=== PATIENT | male | born 1955 | race Caucasian/White ===

== ENCOUNTER → 2020-10-30 12:09 | Outpatient (BNVA) | payer MEDICARE, SELFPAY | PROVIDERS: Family Provider Family Medicine; PCP Family Medicine; Visit Provider Family Medicine | DX: N40.0 Benign prostatic hyperplasia without lower urinary tract symptoms (principal); R03.0 Elevated blood-pressure reading, without diagnosis of hypertension; Z12.5 Encounter for screening for malignant neoplasm of prostate | CPT/HCPCS: 80053; 85025; G0103 ==

== ENCOUNTER → 2020-12-11 09:50 | Outpatient (BNVA) | payer MEDICARE, SELFPAY | PROVIDERS: Family Provider Family Medicine; PCP Family Medicine; Visit Provider Family Medicine | DX: M17.11 Unilateral primary osteoarthritis, right knee (principal) | CPT/HCPCS: 73562 ==

== ENCOUNTER → 2020-12-26 10:54 | Outpatient (BNVA) | payer MEDICARE, SELFPAY | PROVIDERS: Family Provider Family Medicine; PCP Family Medicine; Referring Provider Family Medicine; Visit Provider Specialist | DX: M17.11 Unilateral primary osteoarthritis, right knee (principal); Z96.643 Presence of artificial hip joint, bilateral; Z96.652 Presence of left artificial knee joint | CPT/HCPCS: 73560; 73565 ==

== ENCOUNTER 2021-01-01 10:20 | Outpatient (RCR) | payer MEDICARE, SELFPAY | END 2021-01-26 23:59 | disposition home or self-care (01) | LOC: SPT 10:20 | PROVIDERS: Family Provider Family Medicine; PCP Family Medicine; Referring Provider Specialist; Visit Provider Specialist | DX: M17.11 Unilateral primary osteoarthritis, right knee (principal) | CPT/HCPCS: 97110; 97161 ==

== ENCOUNTER 2021-01-27 06:00 | Outpatient (RCR) | payer MEDICARE, SELFPAY | END 2021-02-26 23:59 | disposition home or self-care (01) | LOC: SPT 06:00 | PROVIDERS: Family Provider Family Medicine; PCP Family Medicine; Referring Provider Specialist; Visit Provider Specialist | DX: M17.11 Unilateral primary osteoarthritis, right knee (principal) | CPT/HCPCS: 97110 ==

== ENCOUNTER → 2021-10-08 15:18 | Outpatient (BNVA) | payer MEDICARE, SELFPAY | PROVIDERS: Family Provider Family Medicine; PCP Family Medicine; Visit Provider Specialist | DX: M17.11 Unilateral primary osteoarthritis, right knee (principal) | CPT/HCPCS: 73560; 73565 ==

== ENCOUNTER → 2021-10-30 11:00 | Outpatient (BNVA) | payer MEDICARE, SELFPAY | PROVIDERS: Family Provider Family Medicine; PCP Family Medicine; Visit Provider Specialist | DX: Z20.822 Contact with and (suspected) exposure to COVID-19 (principal); M17.11 Unilateral primary osteoarthritis, right knee | CPT/HCPCS: 87635 ==

== ENCOUNTER 2021-11-04 17:16 | Observation (INO) | payer MEDICARE, SELFPAY ==
[2021-10-30 09:13] VITALS: BMI 34.3
--- NOTE | 2021-10-30 09:18 | ECG_ITS ---
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 Measurements Intervals [place] Rate: 77 P: 39 WA: 125 QRS: 19 QRSD: 105 T: 28 QT: 384 QTc: 435 Interpretive Statements SINUS RHYTHM No previous ECG available for comparison Electronically Signed On 10-30-2021 16:07:45 DOUGHNUT BATTER MIXER by Miya Gomez M.D. [id number]
[2021-10-30 09:49] LABS: Basophils # 0.1 10^3/uL (0.0-0.1); Eosinophils # 0.2 10^3/uL (0.0-0.8); Eosinophils % 2.7 %; Hematocrit 44.9 % (42.0-52.0); Lymphocytes # 1.6 10^3/uL (0.8-4.8); Lymphocytes % 27.7 %; Mean Corpuscular HGB Conc 33.4 g/dL (30.0-36.0); Mean Corpuscular Hemoglobin 29.7 pg (28.0-34.0); Mean Corpuscular Volume 88.9 fl (80-94); Mean Platelet Volume 9.3 fL (7.4-10.4); Monocytes # 0.6 10^3/uL (0.2-0.9); Monocytes % 10.4 %; Neutrophils # 3.38 10^3/uL (1.8-7.7); Neutrophils % 57.9 %; Nucleated Red Blood Cells % 0 %; Platelet Count 232 10^3/cmm (130-400); Red Blood Count 5.05 10^6/uL (4.1-5.3); Red Cell Distribution Width 13.2 % (12.1-15.1); White Blood Count 5.9 10^3/uL (4.0-10.0)
[2021-10-30 10:07] LABS: Add Urine Microscopic? NO; Charge for UA Resulting for Rev
--- NOTE | 2021-10-30 10:11 | ANES.PREANE2 ---
Pre-Anesthetic Assessment Pre-Anesthetic Assessment: Height/Weight: Height 1.63 m Weight 90.718 kg Preop Diagnosis: Primary osteoarthritis right knee Proposed Procedure: Operation Date: 11/04/21 14:10 Proposed Procedures p Total Knee Arthroplasty 62100 M17.10(Right) - Vidya Street MD Was Beta Irene taken within 24 hours: N/A Was Clonidine taken within 24 hours: N/A Social: Social History: No alcohol and No tobacco Exam: Pre-Anes Outpt Exam: alert, oriented x 3, clear to auscultation bilaterally and regular rate & rhythm Airway: Submandibular: WNL Cervical ROM: WNL MP: 1 Dentition: Full History/ROS: No significant history except as noted Pulmonary: Pulmonary: ADHIKARI CV/HEM: CV/HEM: None reported : : None reported Hepatic: Hepatic: None reported GI: GI: GERD and Hiatus hernia Metabolic: Metabolic: None reported Musc/skel: Musc/skel: None reported Neuropsych: Neuropsych: None reported Anesthetic Plan: ASA status: 2 Anesthesia: Anesthesia Evaluation, General and Regional (specify below) Other: General anesthetic with regional adductor canal block for post op pain control. Patient prefers to be asleep. Risk of > 500 ml blood loss (7ml/kg in children): No PFSH Anesthesia PFSH: Medical History Osteoarthritis of right knee Surgical History History of hip replacement Bilateral History of knee replacement Left Social History Smoking and tobacco status: never smoked Alcohol intake: current Alcohol intake frequency: holidays/special occasions only Data Anesthesia CBC & Chem 7: 10/30/21 09:35 10/30/21 09:35 Other Labs: Laboratory Results - last 48 hr 10/30/21 09:35 WBC 5.9 RBC 5.05 Hgb 15.0 Hct 44.9 MCV 88.9 MCH 29.7 MCHC 33.4 RDW 13.2 Plt Count 232 MPV 9.3 Neut % (Auto) 57.9 Lymph % (Auto) 27.7 [place]lette % (Auto) 10.4 Eos % (Auto) 2.7 Baso % (Auto) 1.0 Neut # (Auto) 3.38 Lymph # (Auto) 1.6 [place] # (Auto) 0.6 Eos # (Auto) 0.2 Baso # (Auto) 0.1 Nucleated RBC % (auto) 0 Nucleated RBCs # 0.0 Cardiac Studies: No Data to Display
[2021-10-30 10:20] LABS: Alanine Aminotransferase 20 U/L (0-41); Albumin Level 4.1 g/dL (3.5-5.2); Alkaline Phosphatase 94 IU/L (40-130); Anion Gap 15.3 (5-19); Aspartate Amino Transferase 24 U/L (0-40); Blood Urea Nitrogen 18 mg/dL (8-23); Calcium 8.5 mg/dL (8.5-10.5); Carbon Dioxide 23 mmol/L (22-29); Chloride 105 mmol/L (98-107); Globulin 2.3 g/dL (1.3-4.6); Glomerular Filtration Rate 84.7 mL/min (90-130); Glucose 94 mg/dL (65-115); Osmolality Calculated 290 mOsm/kg (285-295); Potassium 4.3 mmol/L (3.5-5.1); Sodium 139 mmol/L (136-145); Total Bilirubin 0.3 mg/dL (0.15-1.2); Total Protein 6.4 g/dL (6.6-8.7)
[2021-10-30 10:27] LABS: Bilirubin Urine Neg (Negative); Blood Urine Neg (Negative); Glucose Urine UA Norm (Normal); Ketones Urine Negative (Negative); Leukocyte Esterase Urine Negative (Negative); Nitrate Urine Negative (Negative); Protein Urine Neg (Negative); Urine Appearance Clear (CLEAR); Urine Color Straw (Yellow); Urobilinogen Urine Norm (Negative); pH Urine 5 (5-7)
[2021-11-04] VITALS (11 sets, daily range): BP systolic 136–186; BP diastolic 76–109; PULSE 80–97; RESP 12–18; TEMP 36.4–36.9; O2SAT 91–94; BMI 34.3
[2021-11-04] MEDS: sodium chloride 0.9% 1,000 ML 30 ML IV (12:45)
--- NOTE | 2021-11-04 14:35 | W.PM.OPSUD ---
Surgery/Procedure H&P Update DATE OF PROCEDURE: November 04, 2021 DATE H&P PERFORMED: 10/08/21 H&P UPDATE INFORMATION: I have reviewed H&P completed within last 30 days, I have examined patient prior to procedure, No changes to prior documentation and H&P is in [facility] EMR on date indicated PREOP DIAGNOSIS: Primary osteoarthritis right knee PLANNED PROCEDURE: Operation Date: 11/04/21 14:10 Proposed Procedures p Total Knee Arthroplasty 16261 M17.10(Right) - Vidya Street MD Related Problem List Diagnoses (1) Osteoarthritis of right knee: Qualifiers: Osteoarthritis type: primary Qualified Code(s): M17.11 - Unilateral primary osteoarthritis, right knee
--- NOTE | 2021-11-04 14:41 | P.ANESUD_ITS ---
Pre-Anesthetic Update Pre-Anesthetic Assessment: Date of Surgery/Procedure: 11/04/21 Preop Brianda gnosis: Primary osteoarthritis right knee Proposed Procedure: Operation Date: 11/04/21 14:10 Proposed Procedures p Total Knee Arthroplasty 22055 M17.10(Right) - Vidya Street MD Any changes to Pre-Anesthetic Assessment?: No Last Intake: Intake Last Liquid Date 11/03/21 Last Liquid Time 18:00 Last Solid Date 11/03/21 Last Solid Time 18:00 Vitals: Temperature 98 F 11/04/21 12:29 Temperature Source Temporal Artery S can 11/04/21 12:29 Pulse Rate 95 11/04/21 12:29 Pulse Rhythm 11/04/21 12:29 Pulse Strength 3+ Normal 11/04/21 12:29 Respiratory Rate 18 11/04/21 12:29 Blood Pressure 169/108 11/04/21 12:29 Blood Pressure Christina n 128 11/04/21 12:29 Pulse Oximetry 94 11/04/21 12:29 Oxygen Delivery Me thod 11/04/21 12:29 Exam: Pre-Anes Outpt Exam: alert Cardiac Studies: No Data to Display
[2021-11-04] MEDS: vancomycin 1,000 MG in sodium chloride 0.9% 250 ML 250 MG IV (15:20)
--- NOTE | 2021-11-04 15:36 | ANES.PROC ---
Anesthesia Procedures Procedure/Date: 11/04/21 Nerve Block ^: Nerve Block 1: Main Anesthesia: general anesthesia Time Out Performed: Yes Consent: from patient Nerve block location: adductor canal Anesthesia monitors applied: pulse oximetry, EKG, BP cuff and oxygen Nerve block position: supine Anesthetic Used: ropivicaine 0.5% Amount of anesthesia used (mL): 20 Ultrasound used to: recognize landmarks and visualize and ID femerol nerve Nerve Stimulator Used?: No Interscalene/Femoral BLK: 4 stimuplex 21 g needle used for position and inplane approach and visualize local anesthetic spread Injection: neg aspiration of heme Patient Tolerated Procedure: well Complications: none Additional Comments: Full monitors, after time out patient prepped in usual fashion. Using US for real time visualization of structures, needle advanced under US toward target. After negative aspiration total 20 cc ropivacaine 0.5% injected incrementally with negative aspiration between injections with real time visualization of LA spread throughout. Good block, tolerated well.
[2021-11-04] MEDS: vancomycin 1,000 MG SDV 1000 MG XX (16:40)
[2021-11-04] MEDS: vancomycin 1,000 MG SDV 2000 MG IRRIGATION (16:40)
--- NOTE | 2021-11-04 18:18 | PM.OP ---
Operative Report Date of procedure: November 04, 2021 Pre-op Diagnosis: Primary osteoarthritis right knee Post-op diagnosis: same Post-op Findings: Severe degenerative osteoarthritis right knee with calcification in patellar tendon. Procedure Done: Right total knee arthroplasty Implants: The [place] total knee system with a size 5 triathlon beaded posterior stabilized femur right, a triathlon titanium tibial component size 6 beaded, a triathlon X3 posterior stabilized tibial bearing insert size 6 X 16 mm and a beaded triathlon titanium asymmetric patella size 35 x 10 mm Pathology: none sent Surgeon: Vidya Street Solar Energy Installation Manager: [facility] operating room technicians Anesthesia: General (Intubated with preoperative regional block, ASA 2) Estimated blood loss (mL): 25 Tourniquet time (min): 110 Tourniquet time: At 250 mmHg IV fluids (mL): 1,000 Urine output (mL): 200 Complications: None Findings: Severe degenerative osteoarthritic change primarily involving the medial compartment. Calcification was in the patellar tendon. Decreased range of motion. Condition: stable Disposition: PACU (Then discharged to floor for postoperative rehabilitation, pain management, and medical observation.) Brief History: This 65-year-old gentleman presented with complaints of severe right knee pain which caused him significant limitations in his activities of daily living. The patient wished to proceed with operative intervention after nonoperative measures were not successful in addressing his decreased functionality and level of pain. Discussion was undertaken, consents were signed, and questions were answered. Following his surgical procedure, the patient will be placed on the floor under observation status for postoperative rehabilitation. Procedure: The patient was brought to the operating theater, and after undergoing adequate general intubated anesthesia with regional block, ASA 2, the right lower extremity was prepped with Dura-Prep and draped in usual fashion following placement of a tourniquet high on the leg. The leg was then draped free. Following prepping and draping, the leg was exsanguinated, and the tourniquet was elevated to 250 mm Hg for a total tourniquet time of 110 minutes. Prior to elevation of the tourniquet, but following exposure of the site of surgery, a surgical pause was performed. At the time of the surgical pause, we confirmed the site and side of surgery. Additionally, we confirmed the appropriate and timely administration of preoperative antibiotics, vancomycin 1 g and Transexemic acid 1 g. The availability of equipment was confirmed, and the patient's identity was verbalized as well. Following the surgical pause, an incision was made centering over the patella continuing proximally and distally as necessary to allow access to the knee joint. Dissection continued through skin and soft tissues using a scalpel. Hemostasis was obtained using electrocautery. The skin incision was followed by a median parapatellar arthrotomy. The leg was extended and the patella was everted. Calcification was removed from within the patellar tendon. This was quite large. Care was taken to ensure the tendon remained intact. Following this, the leg was returned to flexed position. The distal femur was exposed and a drill hole was made in this for placement of the distal femoral jig. The distal femoral jig was set at 5? of valgus. The distal femoral cutting block was then placed in appropriate position, and an loretta wing was used to confirm an appropriate amount of distal femur would be resected. The distal femoral resection was accomplished with 8 mm of bone being resected distally. After the distal femoral resection had been accomplished, the femur was measured and it measured a size 5. Medial lateral dimension also measured a size 5. A size 5 femoral cutting block was placed in position, and we were then able to accomplish the anterior, posterior and chamfer cuts. This jig was then removed, and the notch guide was placed in position. With the notch guide in appropriate position, the notch was excised including resection of the anterior and posterior cruciate ligaments. This notch was to allow for the posterior stabilized femoral component. At this point, the femur was prepared and attention was directed to the proximal tibia. The posterior knee retractor was placed along with medial and lateral retractors. Further resection of the menisci was accomplished as we had better visualization. A complete meniscectomy was performed both medially and laterally with care being taken to protect the popliteus. Retractors were then placed so that the proximal tibia was well visualized. A drill hole was then made in the tibia for placement of the intramedullary guide. This guide was placed so that approximately 2 mm of bone would be resected from the medial tibial plateau, and this resulted in 4+ mm resected from the lateral tibial plateau. The intramedullary guide was utilized supplemented with an extramedullary guide to assure appropriate alignment for the proximal tibial resection. The proximal tibial jig was then evaluated, pinned in position, and the proximal tibial resection was accomplished without difficulty. The jig was removed, and the proximal tibia was measured. It measured a size 6. We then attempted a trial reduction with a size 6 by 11 mm insert. To better balance the knee, a slight medial release was accomplished, and trial reduction was accomplished with an 13 mm followed by a 16 mm insert. With this, the femoral component was placed in position for the trial reduction, and the knee was placed through range of motion. There was excellent stability with excellent varus-valgus alignment with appropriate patellar tracking. Extension was noted to be full as well. This was felt to be the appropriate size insert. There was full extension and flexion without lift off and the rotation of the tibia was marked. Alignment was checked from the hip to the ankle, and this was noted to be appropriate as well. Attention was then directed to the patella. The patella was measured with a caliper. We resected sufficient patella to leave approximately 14 mm of patella remaining. Measurements of the patella then indicated that a size asymmetric 35 mm x 10 mm was the appropriate patellar size. We then placed the jig to drill for the 3 pegs of the press-fit patella, and these drill holes were made without incident. A trial patella was then placed, and the knee was placed through range of motion. The patella was noted to track nicely without evidence of subluxation. The femur was prepared for a press-fit femur by drilling 2 holes for the femoral pegs. All trial components were subsequently removed. The tibial tray was then pinned into position, and we broached the tibia for the stem of the tibial component. Subsequently, 4 drill holes were made for placement of the press-fit tibia. This was accomplished without difficulty. Care was taken to assure appropriate rotation of the tibia as well as appropriate position on the proximal tibia. The tibial tray was completely seated on the proximal tibia. Following broaching, the tibial guide was removed, and all surfaces were copiously irrigated. The surfaces were then dried and a bone plug was placed into the distal femur. Exparel was also injected at this point. The Tritanium tibia was impacted into position. The beaded femur was then impacted into position in a cementless fashion. The tibial insert was placed. The patella was pressed into position with a patellar clamp. The knee was irrigated with 20 mL of Betadine and 500 mL of normal saline, and this was allowed to remain in the knee for 3-4 minutes. The knee was then copiously irrigated and suctioned dry. Attention was then directed to closure. Closure was accomplished with 0 Vicryl in the fascial tissues. Following this, a 2-0 Monocryl was used in the subcutaneous tissues, and the skin was closed with skin douglas. A sterile dressing was then placed consisting of dermabond Prineo, OpSite, sterile soft roll, and an Colby wrap. The patient was returned the Recovery Room in a satisfactory condition. X-rays were obtained there. The patient will be discharged to the floor for postoperative rehabilitation and pain management. Associated Problem List Diagnoses (1) Osteoarthritis of right knee: Qualifiers: Osteoarthritis type: primary Qualified Code(s): M17.11 - Unilateral primary osteoarthritis, right knee
--- NOTE | 2021-11-04 18:28 | P.PCN_ITS ---
PACU note PACU note: VSS, Good respiratory effort, report to COMPUTER APPLICATIONS ENGINEER Post-Anesthesia Exam: awake
--- NOTE | 2021-11-04 18:28 | PM.PACU ---
PACU note PACU note: VSS, Good respiratory effort, report to COMMISSIONER CONSERVATION OF RESOURCES Post-Anesthesia Exam: awake
--- NOTE | 2021-11-04 19:03 | ANE.PACU2 ---
Inpatient post-anesthesia follow up: Airway intact: Yes Vital signs: Temperature 97.6 F Pulse Rate 80 Respiratory Rate 17 Blood Pressure 136/92 Pulse Oximetry 94 Oxygen Delivery Me thod Nasal Cannula Oxygen Flow Rate 2 Fraction of Inspir ed Oxygen Hydration adequate: Yes Nausea and vomiting: No Pain level: 1 Mental status: Baseline
--- NOTE | 2021-11-04 19:17 | XR_ITS ---
WS: [id number] Exam: XR knee RT 1-2V [id number] Date/Time of Exam: 11/04/2021 7:19 PM Reason For Exam: Total knee right Comparison 10/08/2021. A total knee prosthesis is in place in satisfactory position. Postoperative changes in the adjacent s oft tissues. Anterior surgical skin clips. XR/XR knee RT 1-2V [id number] IMPRESSION: 1. Right total knee replacement in satisfactory position.
--- NOTE | 2021-11-04 19:43 | PC.PHAR ---
Per nurse discussion pt is found/stated to have alpha-gal. Discussed with nurse the seriousness of this disease state and the precautions that have to be taken. Nurse informed me per the patient of the ordered post-op meds the patient was alright with taking all medications except unsure of Reglan, Senna-S, Protonix and Zofran. Upon investigation I found research stating: Ok to use: Reglan (Hospira brand) Zofran (Hospira, and Apotex brand) Pantoprazole (Major and Aurobindo brand) Unknown: Senna-S
[2021-11-04] MEDS: oxyCODONE 5 mg IR Tab/Cap PO (19:58)
[2021-11-05] VITALS (11 sets, daily range): BP systolic 127–148; BP diastolic 70–83; PULSE 88–99; RESP 16–18; TEMP 36.6–36.9; O2SAT 90–95
[2021-11-05 01:47] LABS: Basophils % 0.2 %; Hematocrit 41.7 % (42.0-52.0); Hemoglobin 13.8 g/dL (11.7-16.6); Lymphocytes # 0.7 10^3/uL (0.8-4.8); Lymphocytes % 6.9 %; Mean Corpuscular HGB Conc 33.1 g/dL (30.0-36.0); Mean Corpuscular Hemoglobin 29.8 pg (28.0-34.0); Mean Corpuscular Volume 90.1 fl (80-94); Mean Platelet Volume 9.2 fL (7.4-10.4); Monocytes # 0.7 10^3/uL (0.2-0.9); Monocytes % 7.1 %; Neutrophils # 8.88 10^3/uL (1.8-7.7); Neutrophils % 85.4 %; Nucleated Red Blood Cells % 0 %; Platelet Count 227 10^3/cmm (130-400); Red Blood Count 4.63 10^6/uL (4.1-5.3); Red Cell Distribution Width 13.6 % (12.1-15.1); White Blood Count 10.4 10^3/uL (4.0-10.0)
[2021-11-05 02:07] LABS: Anion Gap 19.4 (5-19); Blood Urea Nitrogen 15 mg/dL (8-23); Calcium 8.3 mg/dL (8.5-10.5); Carbon Dioxide 20 mmol/L (22-29); Chloride 105 mmol/L (98-107); Glucose 182 mg/dL (65-115); Osmolality Calculated 295 mOsm/kg (285-295); Potassium 4.4 mmol/L (3.5-5.1); Sodium 140 mmol/L (136-145)
[2021-11-05] MEDS: oxyCODONE 5 mg IR Tab/Cap PO ×3 (02:20→10:34)
[2021-11-05] MEDS: acetaminophen 1,000 MG/100 ML PIGGYBACK 400 MG IV ×2 (02:31→11:54)
[2021-11-05] MEDS: multivitamin therapeutic Tablet 1 TAB PO (08:23)
[2021-11-05] MEDS: aspirin 325 mg EC Tablet PO (08:23)
[2021-11-05] MEDS: cholecalciferol (vitamin D3) 1,000 unit Tablet 1000 UNIT PO (08:23)
[2021-11-05] MEDS: calcium carbonate 500 mg Chew Tablet 1000 MG PO (08:23)
[2021-11-05] MEDS: pantoprazole DR 40 mg Tablet PO (08:23)
--- NOTE | 2021-11-05 10:14 | PC.CHAP ---
Pastoral Care Encounter/Spiritual Assessment Type of Contact [] Declined sheriff detective visit [] Patient/Family/Request visit [] Outpatient visit [] Follow-up visit [] Physician referral [] Code/Alert [x] Routine visit [] Staff referral [] Actively dying [] Patient sleeping [] Family support [] [] Out of room [] Palliative care [] [x] Receiving care in room [] Pre-surgical visit [] Trauma [] Long length of stay [] ICU visit [] Other: Relational/Emotional Strength [] Patient feels connected with others/family/visitors/staff [] Distress [] Loneliness/isolation [] Abandonment Spirituality of Patient [] Person of Cristin [] Attends Orthodoxy of their Cristin [] Believes in Prayer [] Reads Bible or Scientology materials [] There are Spiritual issues to be addressed Cyber Analyst Interventions [] Prayer [] Active listening [] Non-anxious presence [] Spiritual/emotional support [] Crisis/trauma care [] Spiritual counseling [] Bereavement support [] Provided bereavement packet [] Provided Bible/devotional materials [] Provided toy/stuffed animal, coloring book to patient or family member [] Provided Communion [] Anointing/Golf [] Salvation [] Completed spiritual assessment [] Other: Impact on Illness or Injury [] Angry [] Fearful [] Anxious [] Often cries [] Exhaustion [] Unable to work [] Unable to attend faith [] Unable to walk/stand [] Unable to read [] Unable to drive [] Unable to eat/drink [] Unable to sleep [] Unable to be with family [] Patient intubated [] Other: Summary Time spent with patient
[2021-11-05] MEDS: oxyCODONE 5 mg IR Tab/Cap 10 MG PO (13:21)
[2021-11-05] MEDS: vancomycin 1,000 MG in sodium chloride 0.9% 250 ML 250 MG IV (13:22)
--- NOTE | 2021-11-05 14:02 | PM.DCS ---
Discharge Providers Date of Admission: 11/04/21 17:16 Date of Discharge: November 05, 2021 Attending Provider at Admission: Vidya Street MD Attending Provider at Discharge: Vidya Street MD Primary Care Provider: Alicia Mcdonald MD Diagnoses at Discharge Discharge Diagnosis (1) Osteoarthritis of right knee: Status: Acute Qualifiers: Osteoarthritis type: primary Qualified Code(s): M17.11 - Unilateral primary osteoarthritis, right knee (2) Status post total right knee replacement not using cement: Status: Acute Permanent problem details: The [employer]i total knee system with a size 5 triathlon beaded posterior stabilized femur right, a triathlon titanium tibial component size 6 beaded, a triathlon X3 posterior stabilized tibial bearing insert size 6 X 16 mm and a beaded triathlon titanium asymmetric patella size 35 x 10 mm Reason for Visit Reason for Visit: Primary osteoarthritis Hospital Course Hospital Course This 65-year-old gentleman was brought to the hospital for same-day surgery. He underwent right total knee arthroplasty uneventfully. Postoperatively, the patient was admitted under observation status for right total knee arthroplasty utilizing the [place] triathlon noncemented total knee system. The surgery was well-tolerated. The patient was admitted to the floor postoperatively. He did well through the night. On the first postoperative day, the patient was seen and evaluated by physical therapy. He was felt to be safe for discharge to home. He was seen by me and dressings were removed. The wound demonstrated no evidence of drainage. His foot was swollen, but this is chronically present for the patient. Otherwise, there was no significant swelling about the knee. There were no signs or symptoms of infection or DVT. Patient was neurologically intact and plans were made for his discharge to home. Physical Exam Const: COMMON NORMALS: no acute distress, average body habitus, patient oriented x3 and alert GENERAL APPEARANCE: cooperative and comfortable ORIENTATION/CONSCIOUSNESS: Yes awake HENMT: COMMON NORMALS: normocephalic and atraumatic HEAD & SCALP: normocephalic and atraumatic Eye: GENERAL EYE: appearance normal, both eyes and all related structures Chest: COMMONS NORMALS: normal inspection of the chest Resp: COMMON NORMALS: normal respiratory effort EFFORT & INSPECTION: Yes able to speak in complete sentences and Yes symmetric chest movement Extremity: RIGHT LOWER EXTREMITY: Yes knee joint (Dressing removed. Wound benign.) Right knee: Yes inspection (Swelling in the foot, but chronic), Yes palpation (No significant tenderness.) and Yes neurovascular exam (Intact distally.) Neuro: COMMON NORMALS: patient oriented x3 SENSORIUM/ORIENTATION: Yes alert Psych: COMMON NORMALS: mental status grossly normal APPEARANCE: Yes grossly normal ATTITUDE: Yes calm and Yes engaged ATTENTION/CONCENTRATION: Yes attention grossly intact Skin: COMMON NORMALS: no rashes or lesions noted GENERAL SKIN EXAM: no rashes or lesions noted Urinary Catheter Management^: F: Cath Placed During This Visit: yes Reason for Continuing Indwelling Catheter: Other Urinary Catheter Date of Insertion: 11/04/21 Urinary Catheter Time of Insertion: 15:30 Discharge Data Data Completed and Pending: Completed Studies During Hospitalization Category Date Time Status XR knee RT 1-2V 7 3560 Urgent Exams 11/04/21 19:17 Completed Labs from last 24 hours 11/05/21 11/05/21 01:38 01:38 WBC 10.4 H RBC 4.63 Hgb 13.8 Hct 41.7 L MCV 90.1 MCH 29.8 MCHC 33.1 RDW 13.6 Plt Count 227 MPV 9.2 Neut % (Auto) 85.4 Lymph % (Auto) 6.9 Clay % (Auto) 7.1 Eos % (Auto) 0.0 Baso % (Auto) 0.2 Neut # (Auto) 8.88 H Lymph # (Auto) 0.7 L Clay # (Auto) 0.7 Eos # (Auto) 0.0 Baso # (Auto) 0.0 Nucleated RBC % (a uto) 0 Nucleated RBCs # 0.0 Sodium 140 Potassium 4.4 Chloride 105 Carbon Dioxide 20 L Anion Gap 19.4 H BUN 15 Creatinine 1.0 GFR Calculation 75.0 L Glucose 182 H Calculated Osmolal ity 295 Calcium 8.3 L Vitals: Last Vital Signs Temp 97.8 F 11/05/21 11:57 Pulse 99 11/05/21 11:57 Resp 18 11/05/21 13:21 BP 133/79 11/05/21 11:57 Pulse Ox 95 11/05/21 13:21 Discharge Plan Discharge Patient Disposition: Home Condition: Stable Prescriptions: New oxycodone 5 mg Tablet 10 mg PO Q4H PRN (Reason: Severe Pain) 7 Days Qty: 30 RF: 0 acetaminophen 500 mg Tablet 1,000 mg PO Q8H Qty: 90 RF: 0 aspirin 325 mg Tablet,Delayed Release (Dr/Ec) 325 mg PO DAILY Qty: 30 RF: 0 Continued epinephrine [EpiPen] 0.3 mg/0.3 mL auto-injector 0.3 mg IM Q10M PRN (Reason: Anaphylaxis) RF: 0 omeprazole 20 mg tablet,delayed release (DR/EC) 20 mg PO DAILY RF: 0 Excedrin Extra Strength 250-250-65 mg Tablet 1 tab PO Q6H PRN (Reason: Pain) RF: 0 Held Tylenol 325 mg Capsule 325 mg PO QID PRN (Reason: Pain) RF: 0 Hold Instructions: Resume on 12/03/21. Discharge Orders: Discharge Order (Routine); Ordered 11/05/21 Ordered By: Vidya Street Other Ambulatory Orders: DME: Cane/ Crutches (Order) Location: None Selected Ordered By: Vidya Street Physical [facility] ([facility]) Timeframe: [id number] Facility: [facility] - Location: Physical Therapy Ordered By: Vidya Street [facility] ([facility] Timeframe: [id number] Facility: [facility] - Location: Physical Therapy Ordered By: Vidya Street [facility] ([facility]) Timeframe: [id number] [facility]: [facility] - Location: Physical Therapy Ordered By: Vidya Street [facility] ([facility]) Timeframe: [id number] Facility: [facility] - Location: Physical Therapy Ordered By: Vidya Street [facility] ([facility]) Timeframe: [id number] [facility]: [facility] - Location: Physical Therapy Ordered By: Vidya Street [facility] ([facility]) Timeframe: [id number] [facility]: [facility] - Location: Physical Therapy Ordered By: Vidya Street [facility] ([facility]) Timeframe: [id number] [facility]: [facility] - Location: Physical Therapy Ordered By: Vidya Street [facility] ([facility]) Timeframe: [id number] [facility]: [facility] - Location: Physical Therapy Ordered By: Vidya Street [facility] ([facility]) Timeframe: [id number] Facility: [facility] - Location: Physical Therapy Ordered By: Vidya Street [facility] ([facility]) Timeframe: [id number] Facility: [facility] - Location: Physical Therapy Ordered By: Vidya Street Referrals: Vidya Street MD [Physician] - 11/20/21 10:30 am Discharge Diet: Advance as tolerated and Usual diet Discharge Activity: Resume usual activity, Increase activity as tolerated, Limit activity as instructed and Use walker/crutches as instructed Patient Instructions: Opioid Safety Activity Restrictions/Additional Instructions: Ice and elevate right lower extremity. Gait training and range of motion per physical therapy. Weightbearing as tolerated. 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
--- NOTE | 2021-11-05 15:12 | PC.NURSE ---
IV removed intact. Patient tolerated well. Patient is A&Ox3. Respirations even and non-labored on room air. Reviewed discharge with patient and at this time. Patient and verbalized understanding of follow up appointments and medications. Patient wheel chaired to private car at this time. Patient did not want to wait for his crutches to be delivered.
--- NOTE | 2021-11-10 10:11 | PC.SOCIAL ---
spoke with pts for discharge follow up call. reports pt hasn't been good. fever of 99-100, today better at 98.0. pt has had burning with urination and frequency. pt also they were exposed to covid by a nurse and are waiting for covid results to come back. travel writer called and made an appointment for pt to see dr. price today due to fever and urinary frequency.
== END 2021-11-05 15:15 | disposition home or self-care (01) ==
LOC: MEDSURG 18:34
PROVIDERS: Admitting Provider Specialist; PCP Family Medicine; Visit Provider Specialist
PROC: (CPT 27447; principal; 2021-11-04 14:10)
DX: M17.11 Unilateral primary osteoarthritis, right knee (principal); K21.9 Gastro-esophageal reflux disease without esophagitis; Z79.899 Other long term (current) drug therapy
CPT/HCPCS: 27447; 36415; 51702; 73560; 80048; 80053; 81003; 85025; 93005; 97110; 97116; 97161; 97165; C1776; C9290; G0378; J0330; J1100; J1200; J2405; J2704; J2795; J3010; J3370; J3490; J7030; J7050

== ENCOUNTER → 2021-11-07 10:25 | Outpatient (BNVA) | payer MEDICARE, SELFPAY | PROVIDERS: PCP Family Medicine; Visit Provider Specialist | DX: Z20.822 Contact with and (suspected) exposure to COVID-19 (principal); Z96.651 Presence of right artificial knee joint | CPT/HCPCS: 87635 ==

== ENCOUNTER 2021-11-10 06:00 | Outpatient (RCR) | payer MEDICARE, SELFPAY | END 2021-11-28 23:59 | disposition home or self-care (01) | LOC: SPT 06:00 | PROVIDERS: PCP Family Medicine; Referring Provider Specialist; Visit Provider Specialist | DX: M17.11 Unilateral primary osteoarthritis, right knee (principal) | CPT/HCPCS: 29581; 97110; 97161 ==

== ENCOUNTER → 2021-11-20 10:27 | Outpatient (BNVA) | payer MEDICARE, SELFPAY | PROVIDERS: PCP Family Medicine; Visit Provider Specialist | DX: Z96.653 Presence of artificial knee joint, bilateral (principal); Z98.890 Other specified postprocedural states | CPT/HCPCS: 73560; 73565 ==

== ENCOUNTER 2021-11-29 06:00 | Outpatient (RCR) | payer MEDICARE, SELFPAY | END 2021-12-29 23:59 | disposition home or self-care (01) | LOC: SPT 06:00 | PROVIDERS: PCP Family Medicine; Visit Provider Specialist | DX: M17.11 Unilateral primary osteoarthritis, right knee (principal) | CPT/HCPCS: 97110 ==

== ENCOUNTER → 2021-12-24 11:25 | Outpatient (BNVA) | payer MEDICARE, SELFPAY | PROVIDERS: PCP Family Medicine; Visit Provider Specialist | DX: Z96.651 Presence of right artificial knee joint (principal); M17.11 Unilateral primary osteoarthritis, right knee | CPT/HCPCS: 73560; 73565 ==

== ENCOUNTER 2021-12-30 06:00 | Outpatient (RCR) | payer MEDICARE, SELFPAY | END 2022-01-26 23:59 | disposition home or self-care (01) | LOC: SPT 06:00 | PROVIDERS: PCP Family Medicine; Visit Provider Specialist | DX: M17.11 Unilateral primary osteoarthritis, right knee (principal) | CPT/HCPCS: 97110 ==

== ENCOUNTER → 2022-03-23 09:58 | Outpatient (BNVA) | payer MEDICARE, SELFPAY | PROVIDERS: PCP Family Medicine; Visit Provider Specialist | DX: I89.0 Lymphedema, not elsewhere classified (principal); Z96.651 Presence of right artificial knee joint | CPT/HCPCS: 73560; 73565; 99214 ==

== ENCOUNTER 2022-03-26 06:00 | Outpatient (RCR) | payer MEDICARE, SELFPAY | END 2022-03-28 23:59 | disposition home or self-care (01) | LOC: SPT 06:00 | PROVIDERS: PCP Family Medicine; Referring Provider Specialist; Visit Provider Specialist | DX: I89.0 Lymphedema, not elsewhere classified (principal) | CPT/HCPCS: 29581; 97140; 97161 ==

== ENCOUNTER 2022-03-29 06:00 | Outpatient (RCR) | payer MEDICARE, SELFPAY | END 2022-04-16 23:00 | disposition home or self-care (01) | LOC: SPT 06:00 | PROVIDERS: PCP Family Medicine; Referring Provider Specialist; Visit Provider Specialist | DX: I89.0 Lymphedema, not elsewhere classified (principal) | CPT/HCPCS: 29581; 97140 ==

== ENCOUNTER → 2022-09-07 09:45 | Outpatient (BNVA) | payer MEDICARE, SELFPAY | PROVIDERS: PCP Family Medicine; Visit Provider Specialist | DX: Z96.651 Presence of right artificial knee joint (principal); I89.0 Lymphedema, not elsewhere classified | CPT/HCPCS: 73560; 73565; 99213 ==

== ENCOUNTER → 2022-09-23 13:49 | Outpatient (BNVA) | payer MEDICARE, SELFPAY | PROVIDERS: PCP Family Medicine; Visit Provider Specialist | DX: M25.551 Pain in right hip (principal) | CPT/HCPCS: 73502; 99213 ==

== ENCOUNTER 2022-10-08 07:38 | Outpatient (CLI) | payer MEDICARE, SELFPAY ==
--- NOTE | 2022-10-08 07:43 | NM_ITS ---
WS: [id number] THREE-PHASE BONE SCAN HISTORY: Right hip pain COMPARISON: Radiographs 09/23/2022 Patient is is injected with 21.0 mCi Tc99m HDP intravenously. Immediate angiographic phase imaging is performed over the area of concern. Static blood pool imaging also performed. Two-hour whole-body sc intigrams performed in anterior and posterior projections. Additional large field of view imaging sub mitted as necessary. Angiographic and static blood pool imaging centered over the pelvis is normal. On the two-hour delaye d images there is normal uptake within the hip joints. No increased uptake along the RIGHT femoral pr osthesis to suggest loosening. There is no fracture or significant degenerative change. Mild bilateral AC joint and SC joint arthritic changes. There is mild increased uptake within several of the vertebral bodies including what appears to be T9 and L1. These may be osteoporotic fractures. Bilateral knee prostheses. Very small amount of increased uptake associated with the lateral tibial plateau prosthetic component. No radiographic abnormality seen on 09/07/2022 radiograph. Moderate degenerative changes at the LEFT tibiotalar joint. Focal intense uptake involving the RIGHT first metatarsophalangeal joint. Normal soft tissue uptake. VT/VT bone 3 phase [id number] IMPRESSION: 1. Normal three-phase bone scan centered over the RIGHT hip. No evidence for o steomyelitis, cellulitis or loosening. No fracture. 2. Bilateral knee prostheses. There is a small amount of increased uptake invo lving the RIGHT lateral tibial plateau prosthesis. 3. Mild increased uptake involving T9 and L1. May be osteoporotic compression fractures. Follow-up spine radiographs may be helpful. 4. Additional changes of osteoarthritis at the LEFT ankle and RIGHT first meta tarsophalangeal joint.
== END 2022-10-08 07:39 | disposition home or self-care (01) ==
LOC: RAD 07:41
PROVIDERS: PCP Family Medicine; Visit Provider Specialist
DX: M25.551 Pain in right hip (principal); M19.072 Primary osteoarthritis, left ankle and foot
CPT/HCPCS: 78315; A9561

== ENCOUNTER → 2022-10-14 15:37 | Outpatient (BNVA) | payer MEDICARE, SELFPAY | PROVIDERS: PCP Family Medicine; Visit Provider Specialist | DX: M25.551 Pain in right hip (principal); G89.29 Other chronic pain; Z96.653 Presence of artificial knee joint, bilateral; Z96.643 Presence of artificial hip joint, bilateral | CPT/HCPCS: 99213 ==

== ENCOUNTER → 2023-04-05 11:56 | Outpatient (BNVA) | payer MEDICARE, SELFPAY | PROVIDERS: PCP Family Medicine; Visit Provider Family Medicine | DX: Z00.00 Encounter for general adult medical examination without abnormal findings (principal); I10 Essential (primary) hypertension | CPT/HCPCS: 80053; 85025 ==

== ENCOUNTER → 2024-01-04 15:58 | Outpatient (BNVA) | payer MEDICARE, SELFPAY | PROVIDERS: PCP Family Medicine; Referring Provider Family Medicine; Visit Provider Student in an Organized Health Care Education/Training Program | DX: M25.512 Pain in left shoulder (principal); S46.102A Unspecified injury of muscle, fascia and tendon of long head of biceps, left arm, initial encounter; X50.9XXA Other and unspecified overexertion or strenuous movements or postures, initial encounter | CPT/HCPCS: 73030; 99203 ==

== ENCOUNTER → 2024-12-11 09:57 | Outpatient (BNVA) | payer MEDICARE, SELFPAY | PROVIDERS: PCP Family Medicine; Visit Provider Family Medicine | DX: M17.11 Unilateral primary osteoarthritis, right knee (principal); R03.0 Elevated blood-pressure reading, without diagnosis of hypertension | CPT/HCPCS: 80053; 85025 ==